=== PATIENT | male | born 1940 | race Caucasian/White ===

== ENCOUNTER 2020-12-03 07:13 | Emergency (ER) | payer MEDICARE ==
[2020-12-03] MEDS ORDERED: solu-MEDROL 125 MG IV ONE (07:29)
--- NOTE | 2020-12-03 07:29 | ERPHSYRPT ---
- History of Present Illness Time Seen by Provider: 12/03/20 07:28 Source: patient, EMS Exam Limitations: no limitations Physician History: This is a 80-year-old white male who is not on any medications and has no known drug allergies and presents with shortness of breath since the beginning of 2020 per his report. Patient is a significant daily smoker of cigarettes until approximately 3 weeks ago. Patient states that his symptoms of cough and shortness of breath have worsened in the last several days. This morning, the patient contacted a friend and wanted to borrow his home oxygen. Patient has no primary care provider per his report. Patient called EMS services because of his worsening shortness of breath and coughing. EMS states that there is mold throughout his home. Patient denies chest pain. He has no significant abdominal pain. Timing/Duration: other (Patient states his symptoms of shortness of breath began at the first of the year 2020.) Activities at Onset: none Severity of Dyspnea-Max: moderate Severity of Dyspnea-Current: mild (Mild to moderate) Possible Cause: occasional episodes Modifying Factors: Improves With: activity Associated Symptoms: cough, loss of appetite, weakness, No chest pain/discomfort Allergies/Adverse Reactions: No Known Drug Allergies Allergy (Unverified 12/03/20 07:39) Travel Risk - International Travel Have you traveled outside of the country in past 3 weeks: No - Coronavirus Screening Symptoms: Shortness of Breath Close contact with a COVID-19 positive Pt in past 14-21 Days: No - Vaccine Status Have you recieved a Covid-19 vaccination: No - Review of Systems Constitutional: Weakness Eyes: No Symptoms Ears, Nose, & Throat: No Symptoms Respiratory: Cough, Dyspnea Cardiac: No Symptoms Abdominal/Gastrointestinal: No Symptoms Genitourinary Symptoms: No Symptoms Musculoskeletal: No Symptoms Skin: No Symptoms Neurological: No Symptoms Psychological: No Symptoms Endocrine: No Symptoms Hematologic/Lymphatic: No Symptoms Immunological/Allergic: No Symptoms All Other Systems: Reviewed and Negative - Past Medical History Pertinent Past Medical History: No - Past Surgical History Past Surgical History: No - Nursing Vital Signs Nursing Vital Signs: Initial Vital Signs Temperature 97.7 F 12/03/20 07:15 Pulse Rate 125 H 12/03/20 07:15 Respiratory Rate 27 H 12/03/20 07:15 O2 Sat by Pulse Oximetry 96 12/03/20 07:15 Pain Scale Pain Intensity 0 - Physical Exam General Appearance: mild distress, alert, anxiety, thin, other (Disheveled, unclean, uncapped) Eye Exam: PERRL/EOMI, eyes nml inspection Ears, Nose, Throat Exam: hearing grossly normal, normal ENT inspection, normal pharynx Neck Exam: normal inspection, non-tender, supple, full range of motion Respiratory Exam: respiratory distress (Mild), airway intact, diminished breath sounds (Right side lung barraza), accessory muscle use (Mild), No chest tenderness Cardiovascular/Chest Exam: tachycardia Abdominal/Gastrointestinal Exam: soft, normal bowel sounds, other (Large bilateral inguinal hernias with extension into bilateral scrotum.), No tenderness Rectal Exam: not done Extremity Exam: pedal edema (Bilateral feet and ankles) Neurologic Exam: alert, oriented x 3, cooperative, 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 There is no comparison EKG available.) Ordered Tests: Active Orders 24 hr Category Date Time Status Operational Intelligence Officer STAT Care 12/03/20 07:31 Active EKG-ER Only STAT Care 12/03/20 07:29 Active IV Insertion STAT Care 12/03/20 07:29 Active Isolation, Initiate & Maintain STAT Care 12/03/20 07:29 Active Pulse Oximetry (ED) STAT Care 12/03/20 07:29 Active CHEST 1 VIEW (PORTABLE) Stat Exams 12/03/20 07:30 Completed CHEST WITH CONTRAST [CT] Routine Exams 12/03/20 09:50 Completed BLOOD CULTURE Stat Lab 12/03/20 07:45 Received CBC W DIFF Stat Lab 12/03/20 07:45 Completed CMP Stat Lab 12/03/20 07:45 Completed D-DIMER QUANTITATIVE Stat Lab 12/03/20 07:45 Completed Ferritin Stat Lab 12/03/20 07:45 Completed INFLUENZA A+B ERIKA Stat Lab 12/03/20 07:32 Completed LDH-LACTATE DEHYDROGENASE Stat Lab 12/03/20 07:45 Completed Lactic Acid Stat Lab 12/03/20 07:29 Completed Lactic Acid Stat Lab 12/03/20 10:06 Completed [place] Screen Stat Lab 12/03/20 07:45 Completed NT PRO BNP Stat Lab 12/03/20 07:45 Completed TROPONIN Q3H Lab 12/03/20 07:45 Completed TROPONIN Q3H Lab 12/03/20 10:58 Completed TROPONIN Q3H Lab 12/03/20 13:45 Ordered TROPONIN Q3H Lab 12/03/20 16:45 Ordered TROPONIN Q3H Lab 12/03/20 19:45 Ordered Respiratory Therapy Assessment DAILY RT 12/03/20 10:18 Completed Medication Summary Generic Name Dose Route Start Last Admin Trade Name Freq PRN Reason Stop Dose Admin Sodium Chloride 1,000 mls @ 100 mls/hr 12/03/20 07:30 12/03/20 07:48 Sodium Chloride 0.9% 1000 Ml IV 01/02/21 07:29 100 mls/hr .Q10H MARBELLA Administration Discontinued Medications Generic Name Dose Route Start Last Admin Trade Name Freq PRN Reason Stop Dose Admin Albuterol/Ipratropium 3 ml 12/03/20 10:17 12/03/20 10:25 Duoneb 0.5-3 Mg/3 Ml Neb IH 12/03/20 10:18 3 ml STAT ONE Administration Albuterol/Ipratropium Confirm 12/03/20 10:19 Duoneb 0.5-3 Mg/3 Ml Neb Administered 12/03/20 10:20 Dose 3 ml IH .STK-MED ONE Meropenem 1 g/ Sodium Chloride 100 mls @ 200 mls/hr 12/03/20 09:02 12/03/20 10:17 IV 12/03/20 09:31 200 mls/hr STAT ONE Administration Sodium Chloride Confirm 12/03/20 10:15 Sodium Chloride 100ml Mini-Bag Plus Administered 12/03/20 10:16 Dose 100 mls @ ud IV .STK-MED ONE Meropenem Confirm 12/03/20 10:14 Merrem 1 Gm Administered 12/03/20 10:15 Dose 1 g IV .STK-MED ONE Methylprednisolone Sodium Succinate 125 mg 12/03/20 07:29 12/03/20 07:48 Solu-Medrol 125 Mg IV 12/03/20 07:30 125 mg STAT ONE Administration Methylprednisolone Sodium Succinate Confirm 12/03/20 07:44 Solu-Medrol 125 Mg Administered 12/03/20 07:45 Dose 125 mg .ROUTE .STK-MED ONE Lab/Rad Data: Laboratory Result Diagrams 12/03/20 07:45 12/03/20 07:45 Laboratory Results 12/03/20 12/03/20 12/03/20 Range/Units 11:13 10:58 10:06 WBC (4.0-10.5) K/mm3 RBC (4.1-5.6) M/mm3 Hgb (12.5-18.0) gm/dl Hct (42-50) % MCV (78-100) fl MCH (26-32) pg MCHC (32-36) g/dl RDW (11.5-14.0) % Plt Count (150-450) K/mm3 MPV (7.5-11.0) fl Gran % (36.0-66.0) % Eos # (Auto) (0-0.5) Absolute Lymphs (auto) (1.0-4.6) Absolute Monos (auto) (0.0-1.3) Lymphocytes % (24.0-44.0) % Monocytes % (0.0-12.0) % Eosinophils % (0.00-5.0) % Basophils % (0.0-0.4) % Absolute Granulocytes (1.4-6.9) Basophils # (0-0.4) D-Dimer (215-500) ng/mL Sodium (137-145) mmol/L Potassium (3.5-5.1) mmol/L Chloride (98-107) mmol/L Carbon Dioxide (22-30) mmol/L Anion Gap (5-15) MEQ/L BUN (9-20) mg/dL Creatinine (0.66-1.25) mg/dL Estimated GFR ML/MIN Glucose (74-106) mg/dL Lactic Acid 3.0 H (0.4-2.0) Calcium (8.4-10.2) mg/dL Ferritin (17.9-464) ng/mL Total Bilirubin (0.2-1.3) mg/dL AST (17-59) U/L ALT (0-50) U/L Alkaline Phosphatase (38-126) U/L Lactate Dehydrogenase (120-246) U/L Troponin I 0.124 H* (0.000-0.034) ng/mL NT-Pro-B Natriuret Pep (0-1800) pg/mL Serum Total Protein (6.3-8.2) g/dL Albumin (3.5-5.0) g/dL Monoscreen (Negative) Influenza Type A Ag (NEGATIVE) Influenza Type B Ag (NEGATIVE) SARS-CoV-2 Ag (Rapid) NEGATIVE (NEGATIVE) Group A Strep Antibody (NEGATIVE) 12/03/20 12/03/20 12/03/20 Range/Units 07:45 07:45 07:45 WBC (4.0-10.5) K/mm3 RBC (4.1-5.6) M/mm3 Hgb (12.5-18.0) gm/dl Hct (42-50) % MCV (78-100) fl MCH (26-32) pg MCHC (32-36) g/dl RDW (11.5-14.0) % Plt Count (150-450) K/mm3 MPV (7.5-11.0) fl Gran % (36.0-66.0) % Eos # (Auto) (0-0.5) Absolute Lymphs (auto) (1.0-4.6) Absolute Monos (auto) (0.0-1.3) Lymphocytes % (24.0-44.0) % Monocytes % (0.0-12.0) % Eosinophils % (0.00-5.0) % Basophils % (0.0-0.4) % Absolute Granulocytes (1.4-6.9) Basophils # (0-0.4) D-Dimer (215-500) ng/mL Sodium (137-145) mmol/L Potassium (3.5-5.1) mmol/L Chloride (98-107) mmol/L Carbon Dioxide (22-30) mmol/L Anion Gap (5-15) MEQ/L BUN (9-20) mg/dL Creatinine (0.66-1.25) mg/dL Estimated GFR ML/MIN Glucose (74-106) mg/dL Lactic Acid (0.4-2.0) Calcium (8.4-10.2) mg/dL Ferritin 439 (17.9-464) ng/mL Total Bilirubin (0.2-1.3) mg/dL AST (17-59) U/L ALT (0-50) U/L Alkaline Phosphatase (38-126) U/L Lactate Dehydrogenase (120-246) U/L Troponin I 0.073 H* (0.000-0.034) ng/mL NT-Pro-B Natriuret Pep (0-1800) pg/mL Serum Total Protein (6.3-8.2) g/dL Albumin (3.5-5.0) g/dL Monoscreen NEGATIVE (Negative) Influenza Type A Ag (NEGATIVE) Influenza Type B Ag (NEGATIVE) SARS-CoV-2 Ag (Rapid) (NEGATIVE) Group A Strep Antibody (NEGATIVE) 12/03/20 12/03/20 12/03/20 Range/Units 07:45 07:45 07:45 WBC 12.3 H (4.0-10.5) K/mm3 RBC 4.96 (4.1-5.6) M/mm3 Hgb 15.2 (12.5-18.0) gm/dl Hct 49.2 (42-50) % MCV 99.2 (78-100) fl MCH 30.6 (26-32) pg MCHC 30.9 L (32-36) g/dl RDW 12.5 (11.5-14.0) % Plt Count 383 (150-450) K/mm3 MPV 10.5 (7.5-11.0) fl Gran % 86.5 H (36.0-66.0) % Eos # (Auto) 0.01 (0-0.5) Absolute Lymphs (auto) 0.63 L (1.0-4.6) Absolute Monos (auto) 0.99 (0.0-1.3) Lymphocytes % 5.1 L (24.0-44.0) % Monocytes % 8.1 (0.0-12.0) % Eosinophils % 0.1 (0.00-5.0) % Basophils % 0.2 (0.0-0.4) % Absolute Granulocytes 10.61 H (1.4-6.9) Basophils # 0.03 (0-0.4) D-Dimer 5286 H* (215-500) ng/mL Sodium 137 (137-145) mmol/L Potassium 4.2 (3.5-5.1) mmol/L Chloride 101 (98-107) mmol/L Carbon Dioxide 27 (22-30) mmol/L Anion Gap 14.1 (5-15) MEQ/L BUN 25 H (9-20) mg/dL Creatinine 1.02 (0.66-1.25) mg/dL Estimated GFR > 60.0 ML/MIN Glucose 167 H (74-106) mg/dL Lactic Acid (0.4-2.0) Calcium 8.9 (8.4-10.2) mg/dL Ferritin (17.9-464) ng/mL Total Bilirubin 1.20 (0.2-1.3) mg/dL AST 36 (17-59) U/L ALT 25 (0-50) U/L Alkaline Phosphatase 122 (38-126) U/L Lactate Dehydrogenase 172 (120-246) U/L Troponin I (0.000-0.034) ng/mL NT-Pro-B Natriuret Pep 814 (0-1800) pg/mL Serum Total Protein 7.6 (6.3-8.2) g/dL Albumin 3.9 (3.5-5.0) g/dL Monoscreen (Negative) Influenza Type A Ag (NEGATIVE) Influenza Type B Ag (NEGATIVE) SARS-CoV-2 Ag (Rapid) (NEGATIVE) Group A Strep Antibody (NEGATIVE) 12/03/20 12/03/20 12/03/20 Range/Units 07:32 07:30 07:29 WBC (4.0-10.5) K/mm3 RBC (4.1-5.6) M/mm3 Hgb (12.5-18.0) gm/dl Hct (42-50) % MCV (78-100) fl MCH (26-32) pg MCHC (32-36) g/dl RDW (11.5-14.0) % Plt Count (150-450) K/mm3 MPV (7.5-11.0) fl Gran % (36.0-66.0) % Eos # (Auto) (0-0.5) Absolute Lymphs (auto) (1.0-4.6) Absolute Monos (auto) (0.0-1.3) Lymphocytes % (24.0-44.0) % Monocytes % (0.0-12.0) % Eosinophils % (0.00-5.0) % Basophils % (0.0-0.4) % Absolute Granulocytes (1.4-6.9) Basophils # (0-0.4) D-Dimer (215-500) ng/mL Sodium (137-145) mmol/L Potassium (3.5-5.1) mmol/L Chloride (98-107) mmol/L Carbon Dioxide (22-30) mmol/L Anion Gap (5-15) MEQ/L BUN (9-20) mg/dL Creatinine (0.66-1.25) mg/dL Estimated GFR ML/MIN Glucose (74-106) mg/dL Lactic Acid 3.0 H (0.4-2.0) Calcium (8.4-10.2) mg/dL Ferritin (17.9-464) ng/mL Total Bilirubin (0.2-1.3) mg/dL AST (17-59) U/L ALT (0-50) U/L Alkaline Phosphatase (38-126) U/L Lactate Dehydrogenase (120-246) U/L Troponin I (0.000-0.034) ng/mL NT-Pro-B Natriuret Pep (0-1800) pg/mL Serum Total Protein (6.3-8.2) g/dL Albumin (3.5-5.0) g/dL Monoscreen (Negative) Influenza Type A Ag NEGATIVE (NEGATIVE) Influenza Type B Ag NEGATIVE (NEGATIVE) SARS-CoV-2 Ag (Rapid) (NEGATIVE) Group A Strep Antibody NOT DETECTED (NEGATIVE) - Progress Progress: improved, re-examined Air Movement: poor Progress Note: 12/03/20 08:05 Chest x-ray shows moderate to large right pleural effusion. 12/03/20 10:51 CAT scan of the chest with contrast shows no obvious pulmonary embolus present. There is a large right pleural effusion present. Medical decision making: I think this patient would be best served by being in a facility that has both cardiology services and pulmonary services available. I called [facility] and spoke with Dr. Aldrich in the emergency department. He believes the patient should best be served in a stepdown unit. They do not have stepdown unit beds available at this time. 12/03/20 11:49 Medical decision making: The patient's second troponin was elevated. There were no appropriate level beds at [facility] in [facility]. There were no appropriate level beds at [facility]. This was verified by calling the transfer centers at both institutions. We called [facility] in [facility]. I spoke with Dr. Mora, the hospitalist. I reviewed the patient history, vital signs, EKG findings, laboratory results and radiographic studies results. She accepts the patient in transfer. Blood Culture(s) Obtained: Yes Antibiotics given: Yes Counseled pt/family regarding: lab results, diagnosis, rad results - Departure Departure Disposition: Transfer Clinical Impression: Pleural effusion on right, Elevated troponin, Elevated d-dimer, Sinus tachycardia Condition: Fair Critical Care Time: No Referrals: LIVIA SUAREZ [Primary Care Provider] -
[2020-12-03] MEDS ORDERED: Sodium Chloride 0.9% 1000 ML 1,000 ML IV SCH (07:30)
[2020-12-03] MEDS ORDERED: Sodium Chloride 0.9% 1000 ML 1,000 ML ONE (07:44)
[2020-12-03] MEDS ORDERED: solu-MEDROL 125 MG ONE (07:44)
[2020-12-03 08:03] LABS: Absolute Neutrophil Ct (ANC) 10.61 (1.4-6.9); BASOPHIL % 0.2 % (0.0-0.4); Basophil (Absolute #) 0.03 (0-0.4); Eosinophil % 0.1 % (0.00-5.0); Eosinophil (Absolute #) 0.01 (0-0.5); Hematocrit 49.2 % (42-50); Hemoglobin 15.2 gm/dl (12.5-18.0); Lymphocyte (Absolute #) 0.63 (1.0-4.6); Lymphocytes % 5.1 % (24.0-44.0); Mean Cell Volume 99.2 fl (78-100); Mean Corpuscular Hemoglobin 30.6 pg (26-32); Mean Corpuscular Hgb Concent. 30.9 g/dl (32-36); Mean Platelet Volume 10.5 fl (7.5-11.0); Monocyte (Absolute #) 0.99 (0.0-1.3); Monocytes % 8.1 % (0.0-12.0); Neutrophil % 86.5 % (36.0-66.0); Platelet Count 383 K/mm3 (150-450); Red Blood Count 4.96 M/mm3 (4.1-5.6); Red Cell Distribution Width 12.5 % (11.5-14.0); White Blood Count 12.3 K/mm3 (4.0-10.5)
[2020-12-03 08:19] LABS: INFLUENZA A NEGATIVE (NEGATIVE); INFLUENZA B NEGATIVE (NEGATIVE)
[2020-12-03 08:31] LABS: ALBUMIN 3.9 g/dL (3.5-5.0); ALKALINE PHOSPHATASE 122 U/L (38-126); ANION GAP 14.1 MEQ/L (5-15); BLOOD UREA NITROGEN 25 mg/dL (9-20); CHLORIDE 101 mmol/L (98-107); Calcium 8.9 mg/dL (8.4-10.2); Carbon Dioxide 27 mmol/L (22-30); Creatinine 1 1.02 mg/dL (0.66-1.25); EST GLOMERULAR FILTRATION RATE > 60.0 ML/MIN; Glucose 167 mg/dL (74-106); LDH-LACTATE DEHYDROGENASE 172 U/L (120-246); NT PRO BNP 814 pg/mL (0-1800); Potassium 4.2 mmol/L (3.5-5.1); SGOT/AST 36 U/L (17-59); SGPT/ALT 25 U/L (0-50); SODIUM 137 mmol/L (137-145); Total Protein 7.6 g/dL (6.3-8.2)
[2020-12-03] MEDS ORDERED: Merrem 1 GM 1 G in Sodium Chloride 100ML MINI-BAG PLUS 100 ML IV ONE (09:02)
--- NOTE | 2020-12-03 09:53 | XRAY ---
Indication: Short of breath. Comparison: None Portable chest demonstrates 75% right hemithorax consolidation favoring pleural effusion/atelectasis. Remaining heart and left lung unremarkable. Bony thorax intact.
[2020-12-03] MEDS ORDERED: Merrem 1 GM IV ONE (10:14)
[2020-12-03] MEDS ORDERED: Sodium Chloride 100ML MINI-BAG PLUS 100 ML IV ONE (10:15)
[2020-12-03] MEDS ORDERED: DUONEB 0.5-3 MG/3 ml Neb IH ONE ×2 (10:17→10:19)
--- NOTE | 2020-12-03 10:20 | XRAY ---
Indication: Short of breath and elevated d-dimer. Multiple contiguous images obtained through the chest using 80 cc Isovue 370 contrast and PE protocol. Comparison: None There is good opacification of the pulmonary arteries. However large right lung effusion/atelectasis limits evaluation for pulmonary embolus. No obvious pulmonary embolus. Heart not enlarged. Aorta is normal in course and caliber. Multiple small mediastinal lymph nodes, largest precarinal measuring 1.7 x 2.2 cm. Tiny left perihilar calcified nodes. Large right hemithorax effusion occupying at least 75% with subsequent middle to lower lobe compressive atelectasis. Remaining lungs demonstrates mild pulmonary edema, small left upper lung calcified granulomas, and medial left lower lobe subsegmental atelectasis/scarring Bony thorax intact with mild degenerative changes throughout the spine. Limited upper abdomen including adrenal glands are unremarkable. Impression: 1. Right lung pulmonary embolus evaluation limited due to large effusion/atelectasis. No obvious pulmonary embolus. 2. Large right effusion with compressive atelectasis occupying 75% hemithorax. 3. Nonspecific prominent mediastinal lymph node, left lower lobe atelectasis/scarring, and old granulomatous disease.
[2020-12-03 11:43] LABS: COVID AG -BINAX NOW RAPID TEST NEGATIVE (NEGATIVE)
[2020-12-03 12:10] VITALS: BP 147/74; PULSE 107; O2SAT 93
== END 2020-12-03 12:13 | disposition short-term general hospital (02) ==
LOC: ED 07:13
DX: J90 Pleural effusion, not elsewhere classified (principal); R74.8 Abnormal levels of other serum enzymes; R79.89 Other specified abnormal findings of blood chemistry; R00.0 Tachycardia, unspecified
CPT/HCPCS: 36415; 71045; 71260; 80053; 82728; 83605; 83615; 83880; 84484; 85025; 85379; 86308; 87040; 87400; 87651; 93005; 93041; 94640; 94760; 96365; 96374; 99000; 99285; J2930; A9270-GY